=== PATIENT | male | born 1945 | race Caucasian/White ===

== ENCOUNTER → 2018-12-24 | Outpatient (CLI) | payer MEDICARE, MEDICAID ==
--- NOTE | 2018-12-24 10:43 | REP ---
Three-phase bone scan with thoracic imaging. History: Other chest pain. Left lower rib pain since shoveling 2 weeks ago with a history of left lower rib fractures remotely. Comparison CT images are from May 26, 2018. Technique: 21.6 mCi technetium 99m MDP is injected and standard three-phase imaging was acquired. Findings: Anterior and posterior flow study is normal. Blood pool images show a minimal zone of hyperemia over the right lower anterior rib cage. Delayed scan images demonstrate that to linearly opposed foci of increased uptake in the right lower rib cage anteriorly involving rib numbers 8 and 9. These are consistent with recent fractures. The left lower rib cage is unremarkable scintigraphically. There is uptake in bilateral kidneys. Skeletal distribution is otherwise normal. Impression: Findings consistent with healing fractures involving the right anterolateral eighth and ninth ribs. Otherwise negative. Electronically Signed by Donovan Guevara MD 12/24/2018 12:08 P
== END ==
LOC: M RAD 07:37
PROVIDERS: ATTEND Physician Assistant
DX: R07.89 Other chest pain (principal)
CPT/HCPCS: 78315; A9503

== ENCOUNTER → 2020-04-21 | Outpatient (REF) | payer MEDICARE, MEDICAID ==
[~2020-04-21] MED LIST: ALBU8.5H; AMLO2.5T3 PO; ASPI81TA26 PO; ATEN25TA PO; ATOR40TA75 PO; CILO100T PO; HYDR12CA PO; JEVILIQ7 GT; MAG-400T7 PO; MAGICMW SS; OMEP-218 PO; ONDA8TAB10 PO; OXYC1SOL3 PO; POTA10TA17 PO; POTA1TAB23; POTA20EL PEG; PROC10TA4 PO; VITA50005
== END ==
LOC: M LAB REF 19:58
PROVIDERS: ATTEND Otolaryngology
DX: R22.1 Localized swelling, mass and lump, neck (principal)

== ENCOUNTER 2020-05-11 13:02 | Day surgery (SDC) | payer MEDICARE, MEDICAID ==
[2020-05-11] MEDS ORDERED: EPINEPHrine 1MG/ML INJ 30ML MD-VIAL As Ordered ONE (13:46)
[2020-05-11] MEDS ORDERED: METHYLENE BLUE 0.5% (5MG/ML) 10 ML AMP (PROVAYBLUE) As Ordered ONE (13:46)
[2020-05-11] MEDS ORDERED: KETAMINE HCL 200 MG/20 ML VIAL As Ordered ONE (14:07)
[2020-05-11] MEDS ORDERED: SUCCINYLCHOLINE 100 MG/5 ML SYRINGE (J0330) As Ordered ONE (14:07)
[2020-05-11] MEDS ORDERED: fentaNYL 100 MCG/2 ML INJECTION (J3010) As Ordered ONE (14:07)
[2020-05-11] MEDS ORDERED: propofoL 200 MG/20 ML VIAL As Ordered ONE (14:07)
[2020-05-11] MEDS ORDERED: MIDAZOLAM INJ 2MG/2ML VIAL (J2250 PER 1MG) As Ordered ONE (14:07)
[2020-05-11] MEDS ORDERED: ONDANSETRON 4MG/2ML VIAL As Ordered ONE (14:08)
[2020-05-25] MEDS ORDERED: AMLO2.5T3 PO (11:23)
[2020-05-25] MEDS ORDERED: VITA50005 (11:23)
[2020-05-25] MEDS ORDERED: CILO100T PO (11:23)
[2020-05-25] MEDS ORDERED: OMEP-218 PO (11:23)
[2020-05-25] MEDS ORDERED: ATOR40TA75 PO (11:23)
[2020-05-25] MEDS ORDERED: ALBU8.5H (11:23)
[2020-05-25] MEDS ORDERED: POTA1TAB23 (11:23)
[2020-05-25] MEDS ORDERED: ASPI81TA26 PO (11:23)
[2020-05-25] MEDS ORDERED: ATEN25TA PO (12:21)
[2020-06-06] MEDS ORDERED: MAG-400T7 PO (08:08)
[2020-06-15] MEDS ORDERED: ONDA8TAB10 PO (08:48)
[2020-06-15] MEDS ORDERED: PROC10TA4 PO (08:48)
[2020-06-15] MEDS ORDERED: HYDR12CA PO (14:17)
[2020-07-02 16:43] LABS: HEMOGLOBIN 11.1 g/dl (13.5-17.5); MEAN CORPUSCULAR HEMOGLOBIN 27.1 pg (27.0-33.0); MEAN CORPUSCULAR HGB CONC 31.7 g/dl (32.0-36.5); MEAN CORPUSCULAR VOLUME 85.6 fl (80.0-96.0); PLATELET COUNT, AUTOMATED 470 10^3/uL (150-450); RED BLOOD COUNT 4.09 10^6/uL (4.30-6.10); WHITE BLOOD COUNT 11.2 10^3/uL (4.0-10.0)
[2020-07-03] MEDS ORDERED: MAGICMW SS (10:15)
--- NOTE | 2020-07-06 09:44 | RO ---
DATE OF OPERATION: May 11, 2020 PREOPERATIVE DIAGNOSIS: Cancer of the hypopharynx. POSTOPERATIVE DIAGNOSIS: Cancer of the hypopharynx. OPERATIVE PROCEDURE: Direct laryngoscopy and biopsy. FINDINGS: There was a tumor at the lateral and posterior wall of the hypopharynx, not extending into the pyriform fossa, not extending anteriorly or superiorly. It measured 2.5 cm diameter. It was ulcerated and there was no bleeding until I biopsied it. PROCEDURE IN DETAIL: Under general anesthesia, with the patient intubated, a direct laryngoscope was inserted. I examined the oropharynx, larynx, hypopharynx, and the above findings were seen. Two biopsies were made of the edges of the tumor. The patient tolerated the procedure well. There was some bleeding. I cauterized the edges where I had biopsied. I did use some adrenaline 1:1000. There was no bleeding at the end of the procedure. The patient tolerated the procedure well and was transferred to the recovery room in excellent condition. SOUMYA
[2020-07-10] MEDS ORDERED: JEVILIQ7 GT (10:02)
[2020-07-31] MEDS ORDERED: OXYC1SOL3 PO (10:06)
== END 2020-05-11 15:40 | disposition home or self-care (01) ==
LOC: M SDC 13:02
PROVIDERS: ATTEND Otolaryngology
DX: C13.9 Malignant neoplasm of hypopharynx, unspecified (principal); I10 Essential (primary) hypertension; E78.5 Hyperlipidemia, unspecified; K21.9 Gastro-esophageal reflux disease without esophagitis; F17.218 Nicotine dependence, cigarettes, with other nicotine-induced disorders; Z88.0 Allergy status to penicillin; Z79.82 Long term (current) use of aspirin; Z79.899 Other long term (current) drug therapy
CPT/HCPCS: 31535; 85027; 88307; J0330; J2250; J2405; J3010; Q9968

== ENCOUNTER → 2020-05-25 | Outpatient (CLI) | payer MEDICARE, MEDICAID | LOC: M ONCR 10:33 | PROVIDERS: ATTEND General Practice | DX: C13.2 Malignant neoplasm of posterior wall of hypopharynx (principal) ==

== ENCOUNTER → 2020-05-30 | Outpatient (CLI) | payer MEDICARE, MEDICAID ==
--- NOTE | 2020-06-26 17:54 | REP ---
CT/PET REASON FOR EXAM: Malignant neoplasm of the hypopharynx. COMPARISON: There are no prior PET/CT examinations for comparison. Outside CT examination of the neck dated 03/23/2020 was reviewed. That examination showed an asymmetric enlargement of the soft tissues of the right posterolateral oropharyngeal area with compression of the aryepiglottic fold. Bilateral cervical chain adenopathy was also present. FINDINGS: After the intravenous administration of 8.48 millicuries of FDG-18, triplane whole body PET/CT was performed from the skull base to the mid thigh. In the left neck just posterior to the parapharyngeal space, there was a focus of abnormal hypermetabolic activity with an SUV value of 11.9. In the bilateral cervical lymph node chain, there was abnormal hypermetabolic activity with a large mass on the right which measures approximately 2.3 x 1.7 x 3.6 cm and having hypermetabolic activity with maximal SUV values of 14. At the same level on the left, there is adenopathy having hypermetabolic activity with maximal SUV values of 16. This node measures approximately 1.6 x 1.2 x 1.9 cm. On the right at the level of the thyroid cartilage and posterolateral to the jugular vein, there is an additional hypermetabolic focus which has maximal SUV of 7.3. This measures approximately 0.7 x 0.5 x 0.7 cm. Inferior to the aforementioned hypermetabolic activity and on the right, there is a tiny focus of hypermetabolic activity having a maximal SUV value of 4.4. Just inferior to that level in the right neck, there is an area of hypermetabolic activity which is compressing the right aryepiglottic fold. This has a maximal SUV value of 16. Just to the left of this in the left neck root soft tissues at the level of the left wing of the thyroid cartilage, there is a hypermetabolic focus which has maximal SUV value of 16. There are no other areas of abnormal hypermetabolic activity seen in the neck, chest, abdomen, or pelvis. However, diffuse hypermetabolic activity is seen throughout the axial skeleton having SUV values of 2.5 and slightly higher with multiple areas just below that hypermetabolic threshold between 1.96 and 2.4. IMPRESSION: Multiple abnormal foci of hypermetabolic activity seen in the neck soft tissues bilaterally as described above consistent with neoplasm. Hypermetabolic marrow as described above. I have not been given history of chemotherapy since the patient's neck CT scan of 03/23/2020. Certainly, chemoreactive marrow can show this type of skeletal activity. MTDD
== END ==
LOC: M PLARAD 08:00
PROVIDERS: ATTEND Otolaryngology
DX: C13.8 Malignant neoplasm of overlapping sites of hypopharynx (principal)
CPT/HCPCS: 78815; A9552

== ENCOUNTER → 2020-06-16 | Outpatient (CLI) | payer MEDICARE, MEDICAID | LOC: M LABSMTC 09:29 | PROVIDERS: ATTEND Anesthesiology | DX: Z01.812 Encounter for preprocedural laboratory examination (principal); Z20.828 Contact with and (suspected) exposure to other viral communicable diseases | CPT/HCPCS: C9803; U0003 ==

== ENCOUNTER 2020-06-21 10:06 | Day surgery (SDC) | payer MEDICARE, MEDICAID ==
[~2020-06-21] VITALS: Ht 177.8 cm; Wt 65.2 kg
[~2020-06-21 10:06] MED LIST changes: -JEVILIQ7 GT; +LevoFLOXacin IV 500 MG in IV 1 EA IV ONE; -MAGICMW SS; +NS 1,000 ML IV ONE; -OXYC1SOL3 PO; -POTA10TA17 PO; -POTA20EL PEG
[2020-06-21] MEDS ORDERED: LevoFLOXacin 500MG/100ML IV BAG (J1956 PER 250MG) As Ordered ONE (10:35)
[2020-06-21] MEDS ORDERED: propofoL 200 MG/20 ML VIAL As Ordered ONE (12:06)
[2020-06-21] MEDS ORDERED: fentaNYL 100 MCG/2 ML INJECTION (J3010) As Ordered ONE (12:07)
[2020-06-21] MEDS ORDERED: LIDOCAINE 2% 100MG/5ML SDV (FOR ANES.) As Ordered ONE (12:07)
--- NOTE | 2020-06-21 12:47 | ROOR ---
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 Procedure: Pre-Anesthesia Assessment: - Prior to the procedure, a History and Physical was performed, and patient medications and allergies were reviewed. The patient is competent. The risks and benefits of the procedure and the sedation options and risks were discussed with the patient. All questions were answered and informed consent was obtained. Patient identification and proposed procedure were verified by the physician, the nurse and the anesthesiologist in the endoscopy suite. Mental Status Examination: alert and oriented. Airway Examination: normal oropharyngeal airway and neck mobility. Respiratory Examination: clear to auscultation. CV Examination: normal. Prophylactic Antibiotics: The patient requires prophylactic antibiotics for planned PEG placement. The patient received antibiotic therapy today, before the procedure started. Prior Anticoagulants: The patient has taken no previous anticoagulant or antiplatelet agents except for aspirin. ASA Grade Assessment: III - A patient with severe systemic disease. After reviewing the risks and benefits, the patient was deemed in satisfactory condition to undergo the procedure. The anesthesia plan was to use monitored anesthesia care (MAC). Immediately prior to administration of medications, the patient was re-assessed for adequacy to receive sedatives. The heart rate, respiratory rate, oxygen saturations, blood pressure, adequacy of pulmonary ventilation, and response to care were monitored throughout the procedure. The physical status of the patient was re-assessed after the procedure. The Endoscope was introduced through the mouth, and advanced to the second part of duodenum. The upper GI endoscopy was accomplished without difficulty. The patient tolerated the procedure well. Findings: The examined esophagus was normal. The entire examined stomach was normal. The patient was placed in the supine position for PEG placement. The stomach was insufflated to appose gastric and abdominal rogers. A site was located in the body of the stomach with excellent transillumination for placement. The abdominal wall was marked and prepped in a sterile manner. The area was anesthetized with 3 mL of 1% lidocaine. The trocar needle was introduced through the abdominal wall and into the stomach under direct endoscopic view. A snare was introduced through the endoscope and opened in the gastric lumen. The guide wire was passed through the trocar and into the open snare. The snare was closed around the guide wire. The endoscope and snare were removed, pulling the wire out through the mouth. A skin incision was made at the site of needle insertion. The externally removable 20 Fr Karan-Cook gastrostomy tube was lubricated. The G-tube was passed over the guide wire through the mouth, and into the stomach. The trocar needle was removed, and the gastrostomy tube was pulled out from the stomach through the skin. The guide wire was removed, and the external bumper attached to the gastrostomy tube. The feeding tube was then cut to an appropriate length. The final position of the gastrostomy tube was confirmed by relook endoscopy, and skin marking noted to be 3 cm at the external bumper. The final tension and compression of the abdominal wall by the PEG tube and external bumper were checked and revealed that the bumper was loose and lightly touching the skin. The feeding tube was capped, and the tube site was cleaned and dressed. Estimated blood loss was minimal. The first portion of the duodenum and second portion of the duodenum were normal. Impression: - Normal esophagus. - Normal stomach. - Normal first portion of the duodenum and second portion of the duodenum. - An externally removable PEG placement was successfully completed. - No specimens collected. Recommendation: - - Please follow the post-PEG recommendations including: change dressing once per day, NPO x4 hrs then water after 4 hrs, regular food after 8 hrs. and clean site with soap and water daily and dry thoroughly. for the first week, cover peg site with saran wrap, plastic bag then shower, dry area under the bumper and replace dry dressing. Flush tube daily with 60 mL water when not in use, flush with 60 mL water after each use. Chad Alves MD Chad Alves MD 06/21/2020 12:46:59 PM Electronically signed by Chad Alves MD Number of Addenda: 0 Note Initiated On: 06/21/2020 12:08 PM Estimated Blood Loss: Estimated blood loss was minimal.
[2020-06-21 13:03] VITALS: BP 123/60
[2020-07-03] MEDS ORDERED: MAGICMW SS (10:15)
[2020-07-10] MEDS ORDERED: JEVILIQ7 GT (10:02)
[2020-07-31] MEDS ORDERED: OXYC1SOL3 PO (10:06)
== END 2020-06-21 13:25 | disposition home or self-care (01) ==
LOC: M OPP 10:06
PROVIDERS: ATTEND Surgery
DX: C13.8 Malignant neoplasm of overlapping sites of hypopharynx (principal); R63.3 Feeding difficulties; Z43.1 Encounter for attention to gastrostomy; F17.210 Nicotine dependence, cigarettes, uncomplicated; Z79.82 Long term (current) use of aspirin; Z79.899 Other long term (current) drug therapy; Z88.0 Allergy status to penicillin; Z92.3 Personal history of irradiation; Z92.21 Personal history of antineoplastic chemotherapy
CPT/HCPCS: 43246; J3010

== ENCOUNTER → 2020-06-28 | Outpatient (RCR) | payer MEDICARE, MEDICAID ==
[~2020-06-28] MED LIST changes: +JEVILIQ7 GT; -LevoFLOXacin IV 500 MG in IV 1 EA IV ONE; +MAGICMW SS; -NS 1,000 ML IV ONE; +OXYC1SOL3 PO; +POTA10TA17 PO; +POTA20EL PEG
--- NOTE | 2020-07-03 09:34 | MEDONC ---
Mr. Kapoor was taken to the [facility] today and underwent port films for his head and neck treatments. The port films were accomplished without difficulty or discomfort and bone beam CT was accomplished as well without difficulty or discomfort. After confirming that the patient was set up appropriately and all criteria were met, radiation was initiated. MTDD
== END ==
LOC: M ONCR 06-01 13:59
PROVIDERS: ATTEND General Practice
DX: C13.2 Malignant neoplasm of posterior wall of hypopharynx (principal)

== ENCOUNTER → 2020-06-28 | Outpatient (RCR) | payer MEDICARE, MEDICAID | LOC: M ST 06-19 09:32 | PROVIDERS: ATTEND Otolaryngology | DX: R13.10 Dysphagia, unspecified (principal) ==

== ENCOUNTER 2020-07-28 08:54 | Outpatient (RCR) | payer MEDICARE, MEDICAID ==
[~2020-07-28 08:54] MED LIST changes: -OXYC1SOL3 PO; -POTA10TA17 PO; -POTA20EL PEG
[2020-07-28] MEDS ORDERED: POTA10TA17 PO (10:54)
[2020-07-28] MEDS ORDERED: POTA20EL PEG (10:58)
[2020-07-31] MEDS ORDERED: OXYC1SOL3 PO (10:06)
== END 2020-07-29 ==
LOC: M ONCR 08:54
PROVIDERS: ATTEND General Practice
DX: C13.2 Malignant neoplasm of posterior wall of hypopharynx (principal)

== ENCOUNTER 2020-08-02 09:04 | Outpatient (RCR) | payer MEDICARE, MEDICAID ==
[~2020-08-02 09:04] MED LIST changes: +OXYC1SOL3 PO; +POTA10TA17 PO; +POTA20EL PEG
[2020-08-11] MEDS ORDERED: PROC10TA4 PO (09:23)
== END 2020-08-28 ==
LOC: M ONCR 09:04
PROVIDERS: ATTEND General Practice
DX: C13.2 Malignant neoplasm of posterior wall of hypopharynx (principal)

== ENCOUNTER → 2020-08-09 | Outpatient (CLI) | payer MEDICARE, MEDICAID ==
--- NOTE | 2020-08-09 14:09 | RADENCPD ---
Date/Time of Encounter Date of Encounter: Aug 09, 2020 Time of Encounter: 14:00 Encounter Saw patient 1 week post tx. Weight down 4 lb, 2-3 ensure per tube daily. Able to swallow pills. Does not think pain medication necessary for swallowing. Exam Skin BL Gr1 dry desquamation OPX Gr3 mucositis L>R palate, healing Tube CDI Voice hoarse Assessment: Expected post RT sequelae. Will attempt to stabilize weight Plan: 6 ensure and 2 qt H20 minimum per PEG daily. May swallow as much as he is able of this quantity Minimize friction to the neck as healing, aquaphor BID Will see in 3 wk for weight check LORY SMITH MD Aug 09, 2020 14:09
== END ==
LOC: M ONCR 13:20
PROVIDERS: ATTEND General Practice
DX: C13.2 Malignant neoplasm of posterior wall of hypopharynx (principal)

== ENCOUNTER → 2020-09-06 | Outpatient (CLI) | payer MEDICARE, MEDICAID ==
--- NOTE | 2020-09-06 13:21 | RADENCPD ---
Date/Time of Encounter Date of Encounter: Sep 06, 2020 Time of Encounter: 13:15 Encounter Mr. Kapoor came in for a weight check today. He is 119lb down from 122 on 08/09/20, states he is eating everything he wants now with no dysphagia or pain. Had pork chops last night and is going to have a footlong sub for lunch. He wants his tube removed badly, states it has become sore. On exam His neck has early radiation fibrosis but there is no residual redness or desquamation. He has a single palpable left level III LN which is firm and small. His oral cavity is clear and all mucositis has resolved. There are no lesions or thrush. His mouth is well-hydrated Assessment Stabilizing weight and no further dysphagia. Will refer back to surgery for PEG removal Follow up in September with PET-CT as previously ordered LORY SMITH MD Sep 06, 2020 13:21
== END ==
LOC: M ONCR 13:00
PROVIDERS: ATTEND General Practice
DX: C13.2 Malignant neoplasm of posterior wall of hypopharynx (principal); Z92.3 Personal history of irradiation; Z93.1 Gastrostomy status

== ENCOUNTER → 2020-10-24 | Outpatient (CLI) | payer MEDICARE, MEDICAID ==
--- NOTE | 2020-10-25 17:16 | REP ---
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 COMPARISON: Comparison PET-CT study May 30, 2020.. TECHNIQUE: Forty-eight minutes following the intravenous injection of a 9.1 mCi dose of F-18 FDG, three-dimensional PET scintigraphy is acquired from the skull base to the proximal thighs. Triplanar noncontrast CT scanning is acquired through the same anatomic range for attenuation correction, and image registration with scan parameters optimized to minimize radiation exposure to the patient. PET scintigraphy and CT datasets were fused and displayed on a workstation with multiplanar and projection display capability. FINDINGS: There is considerable improvement. There is no longer evidence of hypermetabolic uptake in the neck soft tissues. Head and neck soft tissues are unremarkable. There is no abnormal hypermetabolic uptake in the lung parenchyma. There is some normal variant arthritis associated uptake at the shoulders. There is slightly asymmetric uptake in the right hilus, maximum SUV value 3.43. There is no visible adenopathy here and this is of doubtful significance. No other abnormal hypermetabolic uptake is seen in the chest. No abnormal hypermetabolic uptake is seen in the abdomen or pelvis. Scan is otherwise unremarkable. IMPRESSION: Substantially improved PET-CT. There is no longer abnormal hypermetabolic uptake in the head and neck soft tissues. <Electronically signed by Chester Guevara > 10/25/20 [id number]
== END ==
LOC: M PLARAD 10:20
PROVIDERS: ATTEND General Practice
DX: C13.2 Malignant neoplasm of posterior wall of hypopharynx (principal)
CPT/HCPCS: 78815; A9552

== ENCOUNTER → 2020-11-08 | Outpatient (CLI) | payer MEDICARE, MEDICAID ==
[~2020-11-08] MED LIST changes: +CETACAINE SPRAY 5GM MT ONE
--- NOTE | 2020-11-08 13:59 | RADONC ---
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 He underwent chemoradiation 70 Gy in 35 fractions completed 08/02/20. He is seen for 3 month follow up and survivorship. Diagnosis/Treatment History Oncologic History Presented in February 2020 with left neck swelling. CT neck on 03/23/20 showed BL enlarged cervical LN and a lesion in the right hypopharynx. Biopsy on 04/24/20 showed SCC. PET-CT on 05/30/20 showed avidity in the neck nodes and right HPX primary, no distant disease. He had PEG placement on 06/21/20. He underwent concurrent chemoradiation 70 Gy in 35 fractions completed 08/02/20, he had weekly cisplatin with this. Recent Data: 10/24/20 PET-CT FINDINGS: There is considerable improvement. There is no longer evidence of hypermetabolic uptake in the neck soft tissues. Head and neck soft tissues are unremarkable. There is no abnormal hypermetabolic uptake in the lung parenchyma. There is some normal variant arthritis associated uptake at the shoulders. There is slightly asymmetric uptake in the right hilus, maximum SUV value 3.43. There is no visible adenopathy here and this is of doubtful significance. No other abnormal hypermetabolic uptake is seen in the chest. No abnormal hypermetabolic uptake is seen in the abdomen or pelvis. Scan is otherwise unremarkable. IMPRESSION: Substantially improved PET-CT. There is no longer abnormal hypermetabolic uptake in the head and neck soft tissues. Survivorship: HN table: Test Due Next Last result Notes TSH, T4 6m post-tx, then q1y 01/2021 Carotid US q10 y post-tx 2029 Smoking cessation Assess annually, if applicable [address] q1y once CR confirmed 2020 CBC,CMP, Lipids q1y 2020 Interval History Romeo feels well. He is eating all foods and liquids without significant pain or dysphagia. He has dry mouth, drinks water constantly for this. Some remaining dysgeusia, but is able to taste sweet and sour. He has no neck pain. No BEASLEY, no hearing changes. Still smoking, not ready to quit. Appetite is good, weight is stable. Current Therapy Surveillance Stage HPX SCC [id number] Stage AKASH right posterior pharyngeal wall Social History: Current smoker 1/2 ppd Allergies / Meds Allergies: Coded Allergies: Penicillins (Verified Allergy, Intermediate, rash and hives, 06/15/20) Home Meds Active Scripts Prochlorperazine Maleate (Prochlorperazine Maleate) 10 Mg Tablet, 10 MG PO Q8H PRN for NAUSEA OR VOMITING, #60 TAB 2 Refills Prov:YONI MORENO MD 08/11/20 Oxycodone HCl (Oxycodone HCl) 5 Mg/5 Ml Solution, 5 ML PO Q4HP MDD 30 Milliliter(s) for 7 Days, #210 ML Prov:LORY SMITH MD 07/31/20 Magic Mouthwash (First-Mouthwash Blm) 1 Ea Susp, 10 ML SS QID PRN for MUCOSITIS, #240 ML 5 Refills (Diphenhydramine/maalox/lidocaine 1:1:1) May compound if kit unavailable. Take with straw. Prov:LORY SMITH MD 07/03/20 Ondansetron HCl (Ondansetron HCl) 8 Mg Tablet, 8 MG PO Q8H PRN for NAUSEA OR VOMITING, #30 TAB 2 Refills Prov:LAMINE ROCKWELL MD 06/15/20 Reported Medications Hydrochlorothiazide (Hydrochlorothiazide) 12.5 Mg Capsule, 1 TAB PO DAILY, CAP 06/15/20 Atenolol (Atenolol) 25 Mg Tablet, 1 TAB PO DAILY for 30 Days, #30 TAB 05/25/20 Amlodipine Besylate (Amlodipine Besylate) 2.5 Mg Tablet, 1 TAB PO DAILY 05/25/20 Atorvastatin Calcium (Atorvastatin Calcium) 40 Mg Tablet, 1 TAB PO DAILY 05/25/20 Omeprazole (Omeprazole) 20 Mg Capsule.dr, 1 CAP PO DAILY 05/25/20 Aspirin (Aspirin EC) 81 Mg Tablet.dr, 1 TAB PO DAILY 05/25/20 Cilostazol (Cilostazol) 100 Mg Tablet, 1 TAB PO DAILY 05/25/20 Albuterol Sulfate (Albuterol Sulfate Hfa) 8.5 Gm Hfa.aer.ad, PRN 05/25/20 Review of Systems Review of Systems Constitutional: Denies: Chills, Fever, Weight Loss Eyes: Denies: Pain, Vision change HEENT: Reports: Dysphagia; Denies: Head Aches, Ear Pain, Post Nasal Drip, Sore Throat Skin: Denies: Rash Pulmonary: Denies: Dyspnea, Cough Cardiovascular: Denies: Chest Pain, Palpitations Gastrointestinal: Denies: Nausea, Vomiting, Abdominal Pain Genitourinary: Denies: Dysuria, Frequency Hematologic: Denies: Bruising Endocrine: Denies: Polydipsia Musculoskeletal: Denies: Neck pain, Back pain Neurological: Denies: Weakness, Numbness Psych: Reports: Mood Normal Physical Examination Vital Signs Wt 115 (from 128 prior to RT) BMI 17 T 98 P 89 RR 18 BP 102/67 O2 94% Pain 0 Fatigue 1 General Exam: Positive: Alert, Cooperative; Negative: No Acute Distress Eye Exam: Positive: PERRLA, EOMI ENT EXAM: Positive: Atraumatic, Mucous membr. moist/pink, Pharynx Normal, Tongue Midline, Other ENT (No palpable lesions in oral cavity tonsils BOT BL. No trismus) Neck Exam: Negative: Supple (Fibrosis and hyperpigementation. ), Lymphadenopat hy Chest Exam: Positive: Clear to auscultation, Normal air movement Heart Exam: Positive: Rate Normal, Regular Rhythm Abdomen Exam: Positive: Soft Skin Exam: Positive: Nl turgor and temperature Neuro Exam: Positive: Normal Gait, Normal Speech, Cranial Nerves 3-12 NL Psych Exam: Positive: Mental status NL Other Physical Findings Laryngoscopy: The patient provided verbal consent to be scoped. Cetacaine spray was introduced in the right nostril for anesthesia. The scope was passed easily to the nasopharynx which was clear on the right. There was adherent clear mucus on the posterior pharyngeal wall. The BL BOT are clear, the AE folds are clear. There is blunting of the margin of the epiglottis, gag reflex present on closer examination of this. The BL pyriform sinuses were clear. There are no mucosal lesions of the hypopharyngeal wall. The glottis is BL mobile. The scope was withdrawn without incident the patient tolerated this well. Diagnostic and Laboratory Diagnostic Review Radiologic images, relevant labs and pathology reports were personally reviewed and discussed with Mr. Kapoor. Assessment and Plan Impression Assessment Mr. 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 He underwent chemoradiation 70 Gy in 35 fractions completed 08/02/20. He is seen for 3 month follow up and survivorship. He has recovered from the acute effects of RT without significant residual dysphagia. I explained that what remains is likely to improve in time and that taste sensations will likely continue to come back. 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 There is no evidence of residual disease on PET-CT or on endoscopic exam, thus he is in remission. I explained the paradigm for q3m scope surveillance for the first 2 years, and then gradually spacing out follow ups. He is eligible for CT lung cancer screening and so I will arrange this for later this year, I will also check his thyroid function and replace as necessary at the next visit. He is not interested in smoking cessation now. I encouraged him to increase protein calories in his diet in order to increase his BMI to normal range. He asked about drinking beer, and I told him in moderation this is OK. Performance Status ECOG 0 Plan 3 months for scope exam and ongoing survivorship care Mr. Kapoor was encouraged to call with questions or concerns in the interim period. Total time of (45) minutes was spent preparing for the visit (4), obtaining HPI (8), examining the patient (10), reviewing diagnostic tests (10), discussing management options (4), coordinating care (2), and writing this note (7). LORY SMITH MD Nov 08, 2020 13:59
== END ==
LOC: M ONCR 11:10
PROVIDERS: ATTEND General Practice
DX: C13.2 Malignant neoplasm of posterior wall of hypopharynx (principal); F17.200 Nicotine dependence, unspecified, uncomplicated

== ENCOUNTER → 2021-02-07 | Outpatient (CLI) | payer MEDICARE, MEDICAID ==
[~2021-02-07] MED LIST changes: -CETACAINE SPRAY 5GM MT ONE
--- NOTE | 2021-02-07 15:04 | RADONC ---
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 He underwent chemoradiation 70 Gy in 35 fractions completed 08/02/20. Diagnosis/Treatment History Oncologic History Presented in February 2020 with left neck swelling. CT neck on 03/23/20 showed BL enlarged cervical LN and a lesion in the right hypopharynx. Biopsy on 04/24/20 showed SCC. PET-CT on 05/30/20 showed avidity in the neck nodes and right HPX primary, no distant disease. He had PEG placement on 06/21/20. He underwent concurrent chemoradiation 70 Gy in 35 fractions completed 08/02/20, he had weekly cisplatin with this. PET-CT on 10/24/20 showed CR. Laryngoscopy on 11/08/20 confirmed complete response. Survivorship: HN table: Test Due Next Last result Notes TSH, T4 6m post-tx, then q1y 01/2021 (Due today) Carotid US q10 y post-tx 2029 Smoking cessation Assess annually, if applicable 2020 Down to 1 cigarette daily as of 02/07/[address] q1y once CR confirmed 2020 CBC,CMP, Lipids q1y 2020 Interval History Romeo reports he is eating everything he cares to. Pepsi however taste like 'battery acid' per him. He does note other sweet things taste pleasant, and sour things do as well. He is able to swallow meat with diligence, bread is still difficult but goes down with water sips. He has some dry mouth but manageable. No oral pain. No pain in the neck. Does note that the skin below his chin is lax and low hanging which is relatively new. He has minimal hoarseness and no choking. Weight is stable. Down to smoking 1 cigarette daily. Current Therapy Surveillance Stage HPX SCC [id number] Stage AKASH right posterior pharyngeal wall Social History: Current smoker 1 cigarette daily 50+ pack years history Has abstained from alcohol since completing RT Allergies / Meds Allergies: Coded Allergies: Penicillins (Verified Allergy, Intermediate, rash and hives, 06/15/20) Home Meds Active Scripts Prochlorperazine Maleate (Prochlorperazine Maleate) 10 Mg Tablet, 10 MG PO Q8H PRN for NAUSEA OR VOMITING, #60 TAB 2 Refills Prov:YONI MORENO MD 08/11/20 Oxycodone HCl (Oxycodone HCl) 5 Mg/5 Ml Solution, 5 ML PO Q4HP MDD 30 Milliliter(s) for 7 Days, #210 ML Prov:LORY SMITH MD 07/31/20 Magic Mouthwash (First-Mouthwash Blm) 1 Ea Susp, 10 ML SS QID PRN for MUCOSITIS, #240 ML 5 Refills (Diphenhydramine/maalox/lidocaine 1:1:1) May compound if kit unavailable. Take with straw. Prov:LORY SMITH MD 07/03/20 Ondansetron HCl (Ondansetron HCl) 8 Mg Tablet, 8 MG PO Q8H PRN for NAUSEA OR VOMITING, #30 TAB 2 Refills Prov:LAMINE ROCKWELL MD 06/15/20 Reported Medications Hydrochlorothiazide (Hydrochlorothiazide) 12.5 Mg Capsule, 1 TAB PO DAILY, CAP 06/15/20 Atenolol (Atenolol) 25 Mg Tablet, 1 TAB PO DAILY for 30 Days, #30 TAB 05/25/20 Amlodipine Besylate (Amlodipine Besylate) 2.5 Mg Tablet, 1 TAB PO DAILY 05/25/20 Atorvastatin Calcium (Atorvastatin Calcium) 40 Mg Tablet, 1 TAB PO DAILY 05/25/20 Omeprazole (Omeprazole) 20 Mg Capsule.dr, 1 CAP PO DAILY 05/25/20 Aspirin (Aspirin EC) 81 Mg Tablet.dr, 1 TAB PO DAILY 05/25/20 Cilostazol (Cilostazol) 100 Mg Tablet, 1 TAB PO DAILY 05/25/20 Albuterol Sulfate (Albuterol Sulfate Hfa) 8.5 Gm Hfa.aer.ad, PRN 05/25/20 Review of Systems Review of Systems Constitutional: Denies: Fatigue, Weight Loss Eyes: Denies: Pain HEENT: Denies: Head Aches Skin: Denies: Rash Pulmonary: Denies: Dyspnea, Cough Cardiovascular: Denies: Chest Pain Gastrointestinal: Denies: Nausea, Abdominal Pain Hematologic: Denies: Bruising Endocrine: Denies: Cold Intolerance Musculoskeletal: Denies: Neck pain, Back pain Neurological: Denies: Weakness, Numbness Psych: Reports: Mood Normal Physical Examination Vital Signs Wt 117 lbs T 97 P 80 RR 18 BP 122/57 O2 90% Pain 0 Fatigue 0 General Exam: Positive: Alert, Cooperative, No Acute Distress Eye Exam: Positive: PERRLA, EOMI ENT EXAM: Positive: Atraumatic, Mucous membr. moist/pink, Tongue Midline, Other ENT (Complete oral cavity exam performed: He is edentulous, the buccal mucosa and gingiva are pink and well-hydrated. There are no visible or palpable lesions of the mucosal surfaces, tongue or FOM on bimanual exam.) Neck Exam: Positive: Supple (The neck has usual fat losss and mild fibrosis of the subcutaneous tissues. There is submetal lymphedema, laryngeal crepitus intact, there are no palpable cervical or supraclavicular LNs present. ); Negative: Lymphadenopathy Chest Exam: Positive: Clear to auscultation Heart Exam: Positive: Rate Normal Abdomen Exam: Positive: Soft Extremity Exam: Negative: Edema Skin Exam: Positive: Nl turgor and temperature Neuro Exam: Positive: Normal Gait, Strength at 5/5 X4 ext, Cranial Nerves 3-12 NL Psych Exam: Positive: Mental status NL Other Physical Findings Laryngoscopy: The patient provided verbal consent to be scoped. Cetacaine was introduced in the right nostril for anesthesia. The scope was introduced and passed easily to the nasopharynx, there were no lesions visible in the pharyngeal recess. The posterior pharyngeal wall was pink and well hydrated. The oropharynx was entered. The BL tongue bases and vallecula were clear. The posterior pharyngeal wall in the vicinity of the right pyriform sinus ostium (the site of the primary tumor) was pale but without lesions or ulceration. The left pyriform sinus was clear. The epiglottis was prominent with mild edema, the larynx was freely mobile with phonation BL. The scope was withdrawn and the patient tolerated the procedure well. Diagnostic and Laboratory Diagnostic Review Radiologic images, relevant labs and pathology reports were personally reviewed and discussed with Mr. Kapoor. Assessment and Plan Impression Assessment Mr. 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 He underwent chemoradiation 70 Gy in 35 fractions completed 08/02/20. He is doing well overall, eating without significant dysphagia and cutting down on smoking ever further. Stated he might be ready to quit after summertime. He is due for TFTs will order today. Surveillance CT chest should be done sometime this Fall. He has no evidence of recurrent disease on exam. I will see him again in 3 months time. Performance Status ECOG 0 Plan Follow up in 3 months TFTs Mr. Kapoor was encouraged to call with questions or concerns in the interim period. Billing Statement Total time of [35] minutes was spent preparing for the visit [3], obtaining HPI [6], examining the patient [7], reviewing diagnostic tests [3], discussing management options [5], coordinating care [3], and writing this note [8]. LORY SMITH MD February 07, 2021 15:04
== END ==
LOC: M ONCR 11:28
PROVIDERS: ATTEND General Practice
DX: C13.2 Malignant neoplasm of posterior wall of hypopharynx (principal)

== ENCOUNTER → 2021-05-08 | Outpatient (CLI) | payer MEDICARE, MEDICAID ==
[~2021-05-08] MED LIST changes: +ERGO500029; +LEVO25TA5 PO; -VITA50005
--- NOTE | 2021-05-08 11:03 | RADONC ---
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 He underwent chemoradiation 70 Gy in 35 fractions completed 08/02/20. Diagnosis/Treatment History Oncologic History Presented in February 2020 with left neck swelling. CT neck on 03/23/20 showed BL enlarged cervical LN and a lesion in the right hypopharynx. Biopsy on 04/24/20 showed SCC. PET-CT on 05/30/20 showed avidity in the neck nodes and right HPX primary, no distant disease. He had PEG placement on 06/21/20. He underwent concurrent chemoradiation 70 Gy in 35 fractions completed 08/02/20, he had weekly cisplatin with this. PET-CT on 10/24/20 showed CR. Laryngoscopy on 11/08/20 confirmed complete response. 02/07/21 laryngoscopy negative. Survivorship: HN table: Test Due Next Last result Notes TSH, T4 6m post-tx, then q1y Today 02/15/21 TSH 6.3 T4 1.03 Carotid US q10 y post-tx 2030 Smoking cessation Assess annually, if applicable Today Up to 2-3 cigarettes daily Down to 1 cigarette daily as of 02/07/[address] q1y once CR confirmed Jul 2021 CT CBC,CMP, Lipids q1y Jul 2021 Interval History Romeo reports he still has some impaired tastes but sweet and sour are back. He has some pain on the left tongue for the last week when he eats spicy foods or drinks a pop. He also reports he feels cold all the time, even when he is out in the summer heat. He has no significant choking, he is eating meat without difficulty. No pain in the throat. Appetite is good. He has recently gotten hearing aids. Excited about the upcoming hunting season. Current Therapy Surveillance Stage HPX SCC [id number] Stage AKASH right posterior pharyngeal wall Social History: Current 2-3 cigarettes daily 50+ pack-year smoker Drinks 1-2 beers per week Allergies / Meds Allergies: Coded Allergies: Penicillins (Verified Allergy, Intermediate, rash and hives, 06/15/20) Home Meds Active Scripts Prochlorperazine Maleate (Prochlorperazine Maleate) 10 Mg Tablet, 10 MG PO Q8H PRN for NAUSEA OR VOMITING, #60 TAB 2 Refills Prov:YONI MORENO MD 08/11/20 Oxycodone HCl (Oxycodone HCl) 5 Mg/5 Ml Solution, 5 ML PO Q4HP MDD 30 Milliliter(s) for 7 Days, #210 ML Prov:LORY SMITH MD 07/31/20 Magic Mouthwash (First-Mouthwash Blm) 1 Ea Susp, 10 ML SS QID PRN for MUCOSITIS, #240 ML 5 Refills (Diphenhydramine/maalox/lidocaine 1:1:1) May compound if kit unavailable. Take with straw. Prov:LORY SMITH MD 07/03/20 Ondansetron HCl (Ondansetron HCl) 8 Mg Tablet, 8 MG PO Q8H PRN for NAUSEA OR VOMITING, #30 TAB 2 Refills Prov:LAMINE ROCKWELL MD 06/15/20 Reported Medications Hydrochlorothiazide (Hydrochlorothiazide) 12.5 Mg Capsule, 1 TAB PO DAILY, CAP 06/15/20 Atenolol (Atenolol) 25 Mg Tablet, 1 TAB PO DAILY for 30 Days, #30 TAB 05/25/20 Amlodipine Besylate (Amlodipine Besylate) 2.5 Mg Tablet, 1 TAB PO DAILY 05/25/20 Atorvastatin Calcium (Atorvastatin Calcium) 40 Mg Tablet, 1 TAB PO DAILY 05/25/20 Omeprazole (Omeprazole) 20 Mg Capsule.dr, 1 CAP PO DAILY 05/25/20 Aspirin (Aspirin EC) 81 Mg Tablet.dr, 1 TAB PO DAILY 05/25/20 Cilostazol (Cilostazol) 100 Mg Tablet, 1 TAB PO DAILY 05/25/20 Albuterol Sulfate (Albuterol Sulfate Hfa) 8.5 Gm Hfa.aer.ad, PRN 05/25/20 Review of Systems Review of Systems Constitutional: Denies: Malaise, Fatigue, Weight Loss Eyes: Denies: Pain HEENT: Denies: Head Aches Skin: Denies: Rash Pulmonary: Denies: Dyspnea, Cough Cardiovascular: Denies: Chest Pain, Palpitations Gastrointestinal: Denies: Abdominal Pain Hematologic: Denies: Bruising Endocrine: Reports: Cold Intolerance Musculoskeletal: Denies: Neck pain, Back pain Neurological: Denies: Weakness, Numbness Psych: Reports: Mood Normal Physical Examination Vital Signs Wt 119 lbs (from 115 on 11/08/20 francisca) T 96.4 P 72 RR 18 BP 128/61 O2 100% Pain 0 Fatigue 0 General Exam: Alert, Cooperative, No Acute Distress Eye Exam: PERRLA, EOMI ENT EXAM: Atraumatic, Mucous membr. moist/pink, Tongue Midline, Other ENT (Complete oral cavity exam. Oral mucosa well-hydrated and pink. There is a small aphthous ulcer on the left lateral posterior oral tongue, tender to palpation. There are no other visible or palpable lesions in the BL BOT, tonsillar fossae, FOM, buccal and gingival mucosae on bimanual exam. There is no cervical jose opathy, laryngeal crepitus is intact. There is hyperpigmentation of the BL neck, there is grade 1 submental lymphedema.) Chest Exam: Clear to auscultation, Normal air movement; Negative: Wheezing Heart Exam: Rate Normal, Regular Rhythm Abdomen Exam: Soft; Negative: Tenderness Extremity Exam: Negative: Edema Skin Exam: Nl turgor and temperature Neuro Exam: Normal Gait, Normal Speech, Cranial Nerves 3-12 NL Psych Exam: Mental status NL Other Physical Findings Laryngoscopy: Romeo gave verbal consent to be scoped. He declined cetacaine anesthetic. The scope was passed into the right nare, the nasal passage and choanae were WNL, the right nasopharyngeal mucosa was pink and without lesions, the pharyngeal recess in particular was well-visualized and WNL. The posterior pharyngeal wall was well-hydrated, no post-nasal drainage was observed. The BL BOT were without lesions, the vallecula was clear. The epiglottis was upright in orientation, mildly blunted at the rim, and somewhat narrow L-R but overall WNL. The BL hypopharynx was easily visualized and no lesions or ulceration was present. The BL pyriform sinus ostia were clear. No lesions noted in the posterior pharyngeal wall at the level of the hypopharynx. The vocal folds and arytenoids were freely mobile with phonation and without lesions. The scope was withdrawn and Romeo tolerated the procedure well. Diagnostic and Laboratory Diagnostic Review Radiologic images, relevant labs and pathology reports were personally reviewed and discussed with Emelia. Assessment and Plan Impression Assessment Mr. 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 He underwent chemoradiation 70 Gy in 35 fractions completed 08/02/20. He is doing well overall and has no evidence of recurrent disease on exam today. His weight is stable. We discussed smoking cessation for 4 minutes today, he is up to 2-3 cigarettes per day. He would like to quit, he identified no obvious barriers to quitting and has nicotine patches on hand. He was not ready to set a quit date today however. I will recheck TSH and free T4 today because I believe his cold intolerance may be from hypothyroidism, if that proves true I will start him on synthroid. He is also due for chest imaging this Fall, they request it be done @ [place]. I will order non-contrast CT chest in advance of his next appointment with me. Performance Status ECOG 0 Plan Mr. Kapoor was encouraged to call with questions or concerns in the interim period. Billing Statement Follow up in 3 months Recheck TFTs today CT chest @ [place] in advance of next appointment with me Total time of [36] minutes was spent preparing for the visit [3], obtaining HPI [6], examining the patient [7], reviewing diagnostic tests [2], discussing management options [7], coordinating care [4], and writing this note [7]. LORY SMITH MD May 08, 2021 11:03
[2021-05-08 11:38] LABS: FREE T4 1.08 NG/DL (0.76-1.46); THYROID STIMULATING HORMONE 6.1 uIU/ML (0.358-3.740)
== END ==
LOC: M ONCR 09:52
PROVIDERS: ATTEND General Practice
DX: C13.2 Malignant neoplasm of posterior wall of hypopharynx (principal); F17.210 Nicotine dependence, cigarettes, uncomplicated; Z79.899 Other long term (current) drug therapy; Z88.0 Allergy status to penicillin; Z92.21 Personal history of antineoplastic chemotherapy; Z92.3 Personal history of irradiation
CPT/HCPCS: 31575; 36415; 84439; 84443; G0463

== ENCOUNTER → 2021-08-08 | Outpatient (CLI) | payer MEDICARE, MEDICAID ==
--- NOTE | 2021-08-08 12:51 | RADONC ---
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 He underwent chemoradiation 70 Gy in 35 fractions completed 08/02/20. Diagnosis/Treatment History Oncologic History Presented in February 2020 with left neck swelling. CT neck on 03/23/20 showed BL enlarged cervical LN and a lesion in the right hypopharynx. Biopsy on 04/24/20 showed SCC. PET-CT on 05/30/20 showed avidity in the neck nodes and right HPX primary, no distant disease. He had PEG placement on 06/21/20. He underwent concurrent chemoradiation 70 Gy in 35 fractions completed 08/02/20, he had weekly cisplatin with this. PET-CT on 10/24/20 showed CR. Laryngoscopy on 11/08/20 confirmed complete response. 02/07/21 laryngoscopy negative. Survivorship: HN table: Test Due Next Last result Notes TSH, T4 6m post-tx, then q1y October 2021 05/08/21 TSH 6.1 T4 1.08 on 25 mcg synthroid Carotid US q10 y post-tx 2029 Smoking cessation Assess annually, if applicable Today Up to 5 cigarettes daily Down to 1 cigarette daily as of 02/07/[address] q1y once CR confirmed Jul 2021 CT Scheduled for 08/01/21 patient missed apt CBC,CMP, Lipids q1y October 2021 Interval History Romeo was admitted for GIB on blood thinners in June, Hgb was as low as 5. He received transfusions and felt better. EGD and colonoscopy were unrevealing. He feels entirely well now. Has some dry mouth and dysgeusia, eating everything though. No pain in the throat or neck. He has some interest in quitting cigarettes, has nicotine replacement not ready to set a quit date. Current Therapy Surveillance Stage HPX SCC [id number] Stage AKASH right posterior pharyngeal wall Social History: Current 50+ pack-year smoker Drinks 1-2 beers per week Allergies / Meds Allergies: Coded Allergies: Penicillins (Verified Allergy, Intermediate, rash and hives, 06/15/20) Home Meds Active Scripts Levothyroxine Sodium (LEVOTHYROXINE SODIUM) 25 Mcg Tablet, 1 TAB PO DAILY, #30 TAB 5 Refills Prov:LORY SMITH MD 05/09/21 Prochlorperazine Maleate (Prochlorperazine Maleate) 10 Mg Tablet, 10 MG PO Q8H PRN for NAUSEA OR VOMITING, #60 TAB 2 Refills Prov:YONI MORENO MD 08/11/20 Oxycodone HCl (Oxycodone HCl) 5 Mg/5 Ml Solution, 5 ML PO Q4HP MDD 30 Milliliter(s) for 7 Days, #210 ML Prov:LORY SMITH MD 07/31/20 Magic Mouthwash (First-Mouthwash Blm) 1 Ea Susp, 10 ML SS QID PRN for MUCOSITIS, #240 ML 5 Refills (Diphenhydramine/maalox/lidocaine 1:1:1) May compound if kit unavailable. Take with straw. Prov:LORY SMITH MD 07/03/20 Ondansetron HCl (Ondansetron HCl) 8 Mg Tablet, 8 MG PO Q8H PRN for NAUSEA OR VOMITING, #30 TAB 2 Refills Prov:LAMINE ROCKWELL MD 06/15/20 Reported Medications Hydrochlorothiazide (Hydrochlorothiazide) 12.5 Mg Capsule, 1 TAB PO DAILY, CAP 06/15/20 Atenolol (Atenolol) 25 Mg Tablet, 1 TAB PO DAILY for 30 Days, #30 TAB 05/25/20 Amlodipine Besylate (Amlodipine Besylate) 2.5 Mg Tablet, 1 TAB PO DAILY 05/25/20 Atorvastatin Calcium (Atorvastatin Calcium) 40 Mg Tablet, 1 TAB PO DAILY 05/25/20 Omeprazole (Omeprazole) 20 Mg Capsule.dr, 1 CAP PO DAILY 05/25/20 Aspirin (Aspirin EC) 81 Mg Tablet.dr, 1 TAB PO DAILY 05/25/20 Cilostazol (Cilostazol) 100 Mg Tablet, 1 TAB PO DAILY 05/25/20 Albuterol Sulfate (Albuterol Sulfate Hfa) 8.5 Gm Hfa.aer.ad, PRN 05/25/20 Review of Systems Review of Systems Constitutional: Denies: Fatigue, Weight Loss Eyes: Denies: Pain HEENT: Denies: Head Aches Skin: Denies: Rash Pulmonary: Denies: Dyspnea, Cough Cardiovascular: Denies: Chest Pain, Palpitations Gastrointestinal: Denies: Abdominal Pain, Melena, Hematochezia Hematologic: Denies: Bruising, Enlarged Lymph Nodes Endocrine: Denies: Cold Intolerance Musculoskeletal: Denies: Neck pain, Back pain Neurological: Denies: Weakness, Numbness Psych: Denies: Mood Normal Physical Examination Vital Signs Wt 117 lbs T 97.7 P 59 RR 16 BP 120/56 O2 98% Pain 0 Fatigue 0 General Exam: Alert, Cooperative, No Acute Distress Eye Exam: PERRLA, EOMI ENT EXAM: Atraumatic, Mucous membr. moist/pink, Tongue Midline, Other ENT (Complete oral cavity exam. Oral mucosa well-hydrated and pink. There are no other visible or palpable lesions in the BL BOT, tonsillar fossae, FOM, buccal and gingival mucosae on bimanual exam. There is no cervical adenopathy, laryngeal crepitus is intact. There is hyperpigmentation of the BL neck, there is grade 1 submental lymphedema.) Chest Exam: Clear to auscultation Heart Exam: Rate Normal Abdomen Exam: Soft Extremity Exam: Negative: Edema Skin Exam: Nl turgor and temperature Neuro Exam: Normal Gait, Normal Speech, Cranial Nerves 3-12 NL Psych Exam: Mental status NL Other Physical Findings Laryngoscopy: Romeo gave verbal consent to be scoped. Cetacaine anesthetic was sprayed in the right nare. The scope was passed into the right nare, the nasal passage and choanae were WNL, the right nasopharyngeal mucosa was pink and without lesions, the pharyngeal recess in particular was well-visualized and WNL. The posterior pharyngeal wall was well-hydrated, there was a single deposit of yellow mucus adherent. The BL BOT were without lesions, the vallecula was clear. The epiglottis was upright in orientation, mildly blunted at the rim and narrow but WNL. The BL hypopharynx was easily visualized and no lesions or ulceration was present. The BL pyriform sinus ostia were clear. No lesions noted in the posterior pharyngeal wall at the level of the hypopharynx. The vocal folds and arytenoids were freely mobile with phonation and without lesions. The scope was withdrawn and Romeo tolerated the procedure well. Diagnostic and Laboratory Diagnostic Review Radiologic images, relevant labs and pathology reports were personally reviewed and discussed with Mr. Kapoor. Assessment and Plan Impression Assessment Mr. 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 He underwent chemoradiation 70 Gy in 35 fractions completed 08/02/20. He seems to have recovered well from his recent GIB. Holding of the bloodthinners seems to have resolved the bleeding. He was scheduled for a CT chest without contrast on 08/01/21 at [facility]. He missed this appointment, so I will have it rescheduled and call him with the results. He is without any evidence of recurrence on exam today now 1 year removed from treatment. Will continue q3m follow up for year 2 and then space out visits. He will be due for titration of his synthroid at next visit. We spent 4 minutes discussing wellbutrin at a smoking cessation aid. He would like to consider it and raise the issue again at next visit. Performance Status ECOG 0 Plan Follow up in [address] chest, call with results TFTs next visit Mr. Kapoor was encouraged to call with questions or concerns in the interim period. Billing Statement Total time of [36] minutes was spent preparing for the visit [2], obtaining HPI [6], examining the patient [8], reviewing diagnostic tests [1], discussing management options [9], coordinating care [3], and writing this note [7]. LORY SMITH MD Aug 08, 2021 12:51
== END ==
LOC: M ONCR 10:58
PROVIDERS: ATTEND General Practice
DX: C13.2 Malignant neoplasm of posterior wall of hypopharynx (principal); F17.210 Nicotine dependence, cigarettes, uncomplicated; Z92.3 Personal history of irradiation; Z92.21 Personal history of antineoplastic chemotherapy; Z88.0 Allergy status to penicillin; Z79.899 Other long term (current) drug therapy
CPT/HCPCS: 31575; G0463